=== PATIENT | female | born 1975 | race Caucasian/White ===

== ENCOUNTER → 2017-12-15 | Outpatient (CLI) | payer BC ==
--- NOTE | 2017-12-16 09:39 | MM ---
Reason for exam: screening (asymptomatic). Last mammogram was performed 1 year and 2 months ago. History: Patient has history of other cancer at age 38. Family history of breast cancer in mother at age 50, breast cancer in paternal aunt at age 50, breast cancer in paternal aunt, and breast cancer in maternal grandmother. Took hormonal contraceptives for 1 year. Physical Findings: A clinical breast exam by your physician is recommended on an annual basis and results should be correlated with mammographic findings. MG Screening Mammo w CAD Bilateral CC and MLO view(s) were taken. Prior study comparison: October 31, 2016, bilateral MG screening mammo w CAD. March 22, 2014, mammogram, performed at [facility]. The breast tissue is heterogeneously dense. This may lower the sensitivity of mammography. Focal asymmetry 3.8cm from nipple left lower inner quadrant. This finding is changed when compared with previous exams. These results were verbally communicated with the patient and result sheet given to the patient on 12/15/17. ASSESSMENT: Incomplete: need additional imaging evaluation, BI-RAD 0 RECOMMENDATION: Special view mammogram of the left breast. If lesion persists on supplemental views, image directed ultrasound is recommended. [facility] will attempt to contact patient to return for supplemental views and ultrasound if indicated.
== END | disposition home or self-care (01) ==
LOC: RADMAMWWP 09:47
PROVIDERS: ATTEND Family Medicine
DX: Z12.31 Encounter for screening mammogram for malignant neoplasm of breast (principal)
CPT/HCPCS: 77067

== ENCOUNTER → 2017-12-19 | Outpatient (CLI) | payer BC ==
--- NOTE | 2017-12-22 08:56 | MM ---
Reason for exam: additional evaluation requested from abnormal screening. Last mammogram was performed less than 1 month ago. History: Patient has history of other cancer at age 38. Family history of breast cancer in mother at age 50, breast cancer in paternal aunt at age 50, breast cancer in paternal aunt, and breast cancer in maternal grandmother. Took hormonal contraceptives for 1 year. Physical Findings: Nurse did not find any significant physical abnormalities on exam. MG Work Up Mamm w CAD LT Spot compression CC, spot compression MLO, and LM view(s) were taken of the left breast. Prior study comparison: December 15, 2017, bilateral MG screening mammo w CAD. October 31, 2016, bilateral MG screening mammo w CAD. Density persists. Ultrasound recommended. These results were verbally communicated with the patient and result sheet given to the patient on 12/19/17. ASSESSMENT: Incomplete: need additional imaging evaluation, BI-RAD 0 RECOMMENDATION: Ultrasound of the left breast.
--- NOTE | 2017-12-22 08:57 | USB ---
Reason for exam: additional evaluation requested from abnormal screening. History: Patient has history of other cancer at age 38. Family history of breast cancer in mother at age 50, breast cancer in paternal aunt at age 50, breast cancer in paternal aunt, and breast cancer in maternal grandmother. Took hormonal contraceptives for 1 year. US Breast Workup Limited LT Left breast ultrasound demonstrates a 0.6 x 0.5 x 0.3cm oval cystic cluster at 3 o'clock. These results were verbally communicated with the patient and result sheet given to the patient on 12/19/17. ASSESSMENT: Probably benign, BI-RAD 3 RECOMMENDATION: Follow-up diagnostic mammogram and ultrasound of the left breast in 6 months.
== END | disposition home or self-care (01) ==
LOC: RADMAMWWP 10:58
PROVIDERS: ATTEND Family Medicine
DX: R92.8 Other abnormal and inconclusive findings on diagnostic imaging of breast (principal)
CPT/HCPCS: 77065

== ENCOUNTER 2018-05-03 11:20 | Emergency (ER) | payer BC ==
[2018-05-03] MEDS ORDERED: predniSONE 50 MG TAB PO STA (11:41)
[2018-05-03] MEDS ORDERED: FAMOTIDINE 20 MG TAB PO STA (11:42)
[2018-05-03] MEDS ORDERED: diphenhydrAMINE 25 MG CAP PO STA (11:42)
[2018-05-03] MEDS ORDERED: AMOXIC-POT CLAV 875-125MG 1 EACH TAB PO STA (11:43)
--- NOTE | 2018-05-03 11:54 | ED ---
Extremity Problem HPI - General Chief complaint: Extremity Problem,Nontraumatic Stated complaint: RT ARM SWELLING, POSS BUG BITE Time Seen by Provider: 05/03/18 11:36 Source: patient, RN notes reviewed Mode of arrival: ambulatory Limitations: no limitations - History of Present Illness Initial comments: Is a 43-year-old female with a benign past medical history who states she was stung by a bee yesterday on the right hand. He states he started having swelling to the area yesterday but today she has some increased swelling now with increased localized temperature some redness. She does however deny any fevers chills nausea vomiting sweats or other symptoms. She is dominant right- handed. No other modifying factors at this time she does have ALLERGIES to strawberries with no medication ALLERGIES. She denies any shortness of breath or any difficulty swallowing. MD Complaint: extremity pain, extremity swelling - Related Data Previous Rx's Medication Instructions Recorded Amoxicillin/Potassium Clav 1 tab PO Q12HR #20 tab 05/03/18 [Augmentin 875-125 Tablet] Famotidine [Pepcid] 20 mg PO BID #10 tablet 05/03/18 predniSONE 20 mg PO BID #10 tab 05/03/18 Allergies Allergy/AdvReac Type Severity Reaction Status Date / Time No Known Allergies Allergy Verified 05/03/18 11:30 Review of Systems ROS Statement: Those systems with pertinent positive or pertinent negative responses have been documented in the HPI. ROS Other: All systems not noted in ROS Statement are negative. 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 Absent: scleral icterus, conjunctival injection, periorbital swelling ENT exam: Present: normal exam Neck exam: Present: normal inspection (No stridor JVD or bruits). Absent: tenderness, meningismus, lymphadenopathy Respiratory exam: Present: normal lung sounds bilaterally. Absent: respiratory distress, wheezes, rales, rhonchi, stridor Cardiovascular Exam: Present: regular rate, normal rhythm, normal heart sounds. Absent: systolic murmur, diastolic murmur, rubs, gallop, clicks Extremities exam: Present: normal inspection, other (Examination right upper extremity demonstrates evidence of edema ascending up to the elbow with erythema and increased localized temperature. There is tenderness over the epitrochlear lymph node on the right side. The sting site on the dorsal lateral right hand reveals no evidence of foreign body. No drainage or abscess formation noted.) Back exam: Present: full ROM Neurological exam: Present: alert Psychiatric exam: Present: normal affect, normal mood Skin exam: Present: warm, dry, intact. Absent: normal color Course Vital Signs 05/03/18 11:30 Temperature 98.2 F Pulse Rate 72 Respiratory 18 Rate Blood Pressure 113/64 O2 Sat by Pulse 100 Oximetry Medical Decision Making - Medical Decision Making The presentation is consistent with a bee sting reaction as well as localized cellulitis. Patient be placed on appropriate medication. She is a candidate for oral medication and outpatient treatment at this time. Disposition Clinical Impression: Bee sting reaction, Cellulitis of right upper extremity Disposition: HOME SELF-CARE Condition: Good Instructions: Cellulitis (ED), Insect Bite or Sting (ED) Additional Instructions: Elevate right upper extremity when possible above the heart. [id number] Benadryl when necessary 25 mg every 6 hours as needed Prescriptions: Amoxicillin/Potassium Clav [Augmentin 875-125 Tablet] 1 tab PO Q12HR #20 tab Famotidine [Pepcid] 20 mg PO BID #10 tablet predniSONE 20 mg PO BID #10 tab Is patient prescribed a controlled substance at d/c from ED?: No Referrals: Cookie Garcia DO [Primary Care Provider] - 1-2 days
[2018-05-03 12:08] VITALS: BP 100/56; PULSE 87; RESP 17; TEMP 98
== END 2018-05-03 12:05 | disposition home or self-care (01) ==
LOC: EC 11:20
DX: T63.441A Toxic effect of venom of bees, accidental (unintentional), initial encounter (principal); L03.113 Cellulitis of right upper limb; Z91.018 Allergy to other foods; Z85.820 Personal history of malignant melanoma of skin
CPT/HCPCS: 99283; J7512

== ENCOUNTER → 2018-07-07 | Outpatient (CLI) | payer BC ==
--- NOTE | 2018-07-07 09:53 | MM ---
Reason for exam: follow-up at short interval from prior study. Last mammogram was performed 7 months ago. History: Patient has history of other cancer at age 38. Family history of breast cancer in mother at age 50, breast cancer in paternal aunt at age 50, breast cancer in paternal aunt, and breast cancer in maternal grandmother. Took hormonal contraceptives for 1 year. Physical Findings: Nurse did not find any significant physical abnormalities on exam. MG Diagnostic Mammo LT w CAD CC and MLO view(s) were taken of the left breast. Prior study comparison: December 19, 2017, left breast MG work up mamm w CAD LT. December 15, 2017, bilateral MG screening mammo w CAD. The breast tissue is heterogeneously dense. This may lower the sensitivity of mammography. Benign calcifications in the left breast. These results were verbally communicated with the patient and result sheet given to the patient on 07/07/18. ASSESSMENT: Benign, BI-RAD 2 RECOMMENDATION: Follow-up diagnostic mammogram of both breasts in 6 months.
--- NOTE | 2018-07-07 09:55 | USB ---
Reason for exam: follow-up at short interval from prior study. History: Patient has history of other cancer at age 38. Family history of breast cancer in mother at age 50, breast cancer in paternal aunt at age 50, breast cancer in paternal aunt, and breast cancer in maternal grandmother. Took hormonal contraceptives for 1 year. US Breast LT Left complete breast ultrasound includes all four quadrants, the retroareolar region and axilla. Finding demonstrates a 6 x 3 x 8mm cystic lesion at 4 o'clock and a 3 x 2 x 4mm cystic lesion at the posterior nipple. These results were verbally communicated with the patient and result sheet given to the patient on 07/07/18. ASSESSMENT: Benign, BI-RAD 2 RECOMMENDATION: Follow-up diagnostic mammogram of both breasts in 6 months.
== END | disposition home or self-care (01) ==
LOC: RADMAMWWP 08:28
PROVIDERS: ATTEND Family Medicine
DX: R92.8 Other abnormal and inconclusive findings on diagnostic imaging of breast (principal)
CPT/HCPCS: 77065

== ENCOUNTER → 2019-01-20 | Outpatient (CLI) | payer BC ==
--- NOTE | 2019-01-20 12:54 | MM ---
Reason for exam: screening (asymptomatic). Last mammogram was performed 6 months ago. History: Patient has history of other cancer at age 38. Family history of breast cancer in mother at age 50, breast cancer in paternal aunt at age 50, breast cancer in paternal aunt, and breast cancer in maternal grandmother. Took hormonal contraceptives for 1 year. Physical Findings: A clinical breast exam by your physician is recommended on an annual basis and results should be correlated with mammographic findings. MG 3D Diag Mammo W/Cad KEN Bilateral CC and MLO view(s) were taken. Prior study comparison: July 07, 2018, left breast MG diagnostic mammo LT w CAD. December 19, 2017, left breast MG work up mamm w CAD LT. The breast tissue is heterogeneously dense. This may lower the sensitivity of mammography. Developing asymmetry medial left CC. This compresses normally. These results were verbally communicated with the patient and result sheet given to the patient on 01/20/19. ASSESSMENT: Benign, BI-RAD 2 RECOMMENDATION: Routine screening mammogram of both breasts in 1 year.
== END | disposition home or self-care (01) ==
LOC: RADMAMWWP 10:49
PROVIDERS: ATTEND Family Medicine
DX: R92.8 Other abnormal and inconclusive findings on diagnostic imaging of breast (principal)
CPT/HCPCS: 77062; 77066

== ENCOUNTER → 2020-07-20 | Outpatient (CLI) | payer BC ==
--- NOTE | 2020-07-21 13:31 | MM ---
Reason for exam: screening (asymptomatic). Last mammogram was performed 1 year and 6 months ago. History: Patient has history of other cancer at age 38. Family history of breast cancer in mother at age 50, breast cancer in paternal aunt at age 50, breast cancer in paternal aunt, and breast cancer in maternal grandmother. Took hormonal contraceptives for 1 year. Physical Findings: A clinical breast exam by your physician is recommended on an annual basis and results should be correlated with mammographic findings. MG 3D Screening Mammo W/Cad Bilateral CC and MLO view(s) were taken. Prior study comparison: January 20, 2019, bilateral MG 3d diag mammo w/cad KEN. July 07, 2018, left breast MG diagnostic mammo LT w CAD. The breast tissue is heterogeneously dense. This may lower the sensitivity of mammography. No significant changes when compared with prior studies. ASSESSMENT: Benign, BI-RAD 2 RECOMMENDATION: Routine screening mammogram of both breasts in 1 year.
== END | disposition home or self-care (01) ==
LOC: RADMAMWWP 09:48
PROVIDERS: ATTEND Family Medicine
DX: Z12.31 Encounter for screening mammogram for malignant neoplasm of breast (principal)
CPT/HCPCS: 77063; 77067

== ENCOUNTER → 2021-08-23 | Outpatient (CLI) | payer BC ==
--- NOTE | 2021-08-24 11:48 | MM ---
Reason for exam: screening (asymptomatic). Last mammogram was performed 1 year and 1 month ago. History: Patient has history of other cancer at age 38. Family history of breast cancer in mother at age 50, breast cancer in paternal aunt at age 50, breast cancer in paternal aunt, and breast cancer in maternal grandmother. Took hormonal contraceptives for 1 year. Physical Findings: A clinical breast exam by your physician is recommended on an annual basis and results should be correlated with mammographic findings. MG 3D Screening Mammo W/Cad Bilateral CC and MLO view(s) were taken. Prior study comparison: July 20, 2020, bilateral MG 3d screening mammo w/cad. January 20, 2019, bilateral MG 3d diag mammo w/cad KEN. There are scattered fibroglandular densities. There is no discrete abnormality. ASSESSMENT: Negative, BI-RAD 1 RECOMMENDATION: Routine screening mammogram of both breasts in 1 year.
== END ==
LOC: RADMAMWWP 09:54
PROVIDERS: ATTEND Family Medicine
DX: Z12.31 Encounter for screening mammogram for malignant neoplasm of breast (principal); Z80.3 Family history of malignant neoplasm of breast; R92.8 Other abnormal and inconclusive findings on diagnostic imaging of breast
CPT/HCPCS: 77063; 77067

== ENCOUNTER → 2022-09-18 | Outpatient (CLI) | payer BC ==
--- NOTE | 2022-09-19 15:32 | MM ---
Reason for Exam: Screening (asymptomatic). Last mammogram was performed 1 year(s) and 1 month(s) ago. Patient History: Menarche at age 12. First Full-Term at age 30. Late child-bearing (after 30). Other cancer, age 38. Patient used Hormonal Contraceptives for 1 year. Maternal grandmother had breast cancer. Paternal aunt had breast cancer, age 50. Paternal aunt had breast cancer. Mother had breast cancer, age 50. Last menstrual period: 09/18/2022 Risk Values: Riana 5 year model risk: 1.8%. NCI Lifetime model risk: 18.0%. Prior Study Comparison: 01/20/2019 Bilateral Diagnostic Mammogram, [facility]. 07/20/2020 Bilateral Screening Mammogram, [facility]. 08/23/2021 Bilateral Screening Mammogram, [facility]. Tissue Density: There are scattered fibroglandular densities. Findings: Analyzed By CAD. Benign punctate calcifications in the left breast. No suspicious interval change is evident. No suspicious groups of microcalcifications, spiculated or lobular masses, architectural distortion or other secondary signs of malignancy are mammographically apparent. Overall Assessment: Benign, BI-RAD 2 Management: Screening Mammogram of both breasts in 1 year. A negative mammogram report should not preclude additional follow up of suspicious palpable abnormalities. Patient should continue monthly self breast exam. A clinical breast exam by your physician is recommended on an annual basis and results should be correlated with mammographic findings. Electronically signed and approved by: Alexandro Sears D.O. Radiologis
== END | disposition home or self-care (01) ==
LOC: RADMAMWWP 13:56
PROVIDERS: ATTEND Family Medicine
DX: Z12.31 Encounter for screening mammogram for malignant neoplasm of breast (principal); Z80.3 Family history of malignant neoplasm of breast
CPT/HCPCS: 77063; 77067